=== PATIENT | male | born 1970 | race Hispanic/Latino ===

== ENCOUNTER 2018-09-25 19:51 | Inpatient (IN) | payer OTHER ==
[2018-09-25 20:08] VITALS: BMI 28.1
--- NOTE | 2018-09-25 21:10 | ED PDOC ---
Arrival/HPI - General Chief Complaint: Substance Abuse Time Seen by Provider: 09/25/18 19:59 Historian: Patient - History of Present Illness Narrative History of Present Illness (Text): 09/25/18 20:00 48 year old male, whose past medical history includes anxiety, bipolar disorder, substance abuse, presents to the emergency department for evaluation following heroin overdose. Patient state he snorted heroin tonight which he reports it has been awhile since he has done it. Patient began acting strangely according to the family which caused them to call EMS. Patient currently with no other complaints, but reports feeling anxious. Patient has a history of anxiety and bipolar disorder previously on Abilify, but states he has not been taking it. Patient also reports he has been feeling depressed with the holidays arriving. P atient denies any fever, chills, chest pain, shortness of breath, nausea, vomiting, diarrhea, urinary symptoms, back pain, neck pain, headache, dizziness, suicidal/homicidal ideation or any other complaints. Past Medical History - Provider Review Nursing Documentation Reviewed: Yes - Infectious Disease Hx of Infectious Diseases: None - Cardiac Hx Cardiac Disorders: No Hx Angina: No Hx Cardiac Arrhythmia: No Hx Circulatory Problems: No Hx Congestive Heart Failure: No Hx Heart Murmur: No Hx Heart Transplant: No Hx Hypertension: No Hx Internal Defibrillator: No Hx Mitral Valve Prolapse: No Hx Pacemaker: No Hx Peripheral Edema: No Hx Peripheral Vascular Disease: No - Pulmonary Hx Respiratory Disorders: No Hx Asthma: No Hx Bronchitis: No Hx Chronic Obstructive Pulmonary Disease (COPD): Yes Hx Emphysema: No Hx Pneumonia: No Hx Respiratory Aspiration: No Hx Respiratory Tract Infection: No Hx Sleep Apnea: No Hx Tuberculosis: No - Neurological Hx Neurological Disorder: No Hx Alzheimer's Disease: No HX Cerebrovascular Accident: No Hx Dementia: No Hx Dizziness: No Hx Meningitis: No Hx Migraine: No Hx Parkinson's Disease: No Hx Seizures: No Hx Transient Ischemic Attacks (TIA): No - HEENT Hx HEENT Disorder: No Hx Blind: No Hx Cataracts: No Hx Deafness: No Hx Difficulty Chewing: No Hx Epistaxis: No Hx Glaucoma: No Hx Macular Degeneration: No - Renal Hx Renal Disorder: No Hx Dialysis: No Hx Kidney Stones: No Hx Neurogenic Bladder: No Hx Pyelonephritis: No Hx Renal Cancer: No Hx Renal Failure: No - Endocrine/Metabolic Hx Endocrine Disorders: No Hx Adrenal Cancer: No Hx Diabetes Insipidus: No Hx Diabetes Mellitus Type 1: No Hx Diabetes Mellitus Type 2: No Hx Hyperthyroidism: No Hx Hypothyroidism: No Hx Systemic Lupus Erythematosus: No - Hematological/Oncological Hx Blood Disorders: No Hx AIDS: No Hx Anemia: No Hx Cancer: No Hx Chemotherapy: No Hx Cirrhosis: No Hx Hemophilia: No Hx Hepatitis A: No Hx Hepatitis B: No Hx Hepatitis C: Yes Hx Metastasis: No Hx Shingles: No Hx Sickle Cell Disease: No Hx Unexplained Bleeding: No - Integumentary Hx Dermatological Disorder: No Hx Basal Cell Carcinoma: No Hx Eczema: No Hx Melanoma: No Hx Psoriasis: No Hx Squamous Cell Carcinoma: No - Musculoskeletal/Rheumatological Hx Musculoskeletal Disorders: No Hx Arthritis: No Hx Back Pain: No Hx Degenerative Joint Disease: No Hx Falls: No Hx Fractures: No Hx Gout: No Hx Herniated Disk: No Hx Myasthenia Gravis: No Hx Osteoarthritis: No Hx Osteomyelitis: No Hx Osteoporosis: No Hx Rhabdomyolysis: No Hx Spinal Stenosis: No Hx Unsteady Gait: No - Gastrointestinal Hx Gastrointestinal Disorders: No Hx Colostomy: No Hx Crohn's Disease: No Hx Diverticulitis: No Hx Gall Bladder Disease: No Hx Gastroesophageal Reflux: No Hx Gastrointestinal Ulcer: No Hx Ileostomy: No Hx Liver Failure: No Hx Pancreatitis: No HX Swallowing Problems: No - Genitourinary/Gynecological Hx Genitourinary Disorders: No Hx Hematuria: No Hx Incontinence: No Hx Prostate Problems: No Hx Sexually Transmitted Diseases: No Hx Urinary Tract Infection: No - Psychiatric Hx Anxiety: Yes Hx Bipolar Disorder: No Hx Depression: Yes Hx Emotional Abuse: No Hx Hallucinations: No Hx Panic Disorder: No Hx Post Traumatic Stress Disorder: No Hx Psychosis: No Hx Physical Abuse: No Hx Schizophrenia: No Hx Sexual Abuse: No Hx Substance Use: Yes - Surgical History Hx Amputation: No Hx Appendectomy: No Hx Cardiac Catheterization: No Hx Cholecystectomy: No Hx Coronary Stent: No Hx Gastric Bypass Surgery: No Hx Hysterectomy: No Hx Joint Replacement: No Hx Kidney Transplant: No Hx Liver Transplant: No Hx Mastectomy: No Hx Musculoskeletal Surgery: No Hx Open Heart Surgery: No Hx Orthopedic Surgery: No Hx Splenectomy: No Hx Valve Replacement: No - Anesthesia Hx Anesthesia: No - Suicidal Assessment Feels Threatened In Home Enviroment: No Family/Social History - Physician Review Nursing Documentation Reviewed: Yes Family/Social History: No Known Family HX Smoking Status: Current Some Days Smoker Hx Alcohol Use: Yes (states he has not drinked in 2years) Hx Substance Use: Yes Substance used: heroin Allergies/Home Meds Allergies/Adverse Reactions: Allergies No Known Allergies Allergy (Verified 09/25/18 20:10) Home Medications: Home Meds Medication Instructions Recorded Confirmed No Known Home Med 09/25/18 09/25/18 Review of Systems - Physician Review All systems were reviewed & negative as marked: Yes - Review of Systems Constitutional: absent: Fevers, Other (Chills) Respiratory: absent: SOB Cardiovascular: absent: Chest Pain Gastrointestinal: absent: Diarrhea, Nausea, Vomiting Genitourinary Male: absent: Dysuria, Frequency, Hematuria Neurological: absent: Headache, Dizziness Psychiatric: Anxiety, Depression. absent: Suicidal Ideation (homicidal ideation) Physical Exam Vital Signs Reviewed: Yes Vital Signs Temp Pulse Resp BP Pulse Ox 09/25/18 20:08 98.7 F 91 H 18 169/98 H 95 Temperature: Afebrile Blood Pressure: Hypertensive Pulse: Regular Respiratory Rate: Normal Appearance: Positive for: Well-Appearing, Non-Toxic, Comfortable Pain Distress: None Mental Status: Positive for: Alert and Oriented X 3 - Systems Exam Head: Present: Atraumatic, Normocephalic Pupils: Present: PERRL Extroacular Muscles: Present: EOMI Conjunctiva: Present: Normal Mouth: Present: Moist Mucous Membranes Neck: Present: Normal Range of Motion Respiratory/Chest: Present: Clear to Auscultation, Good Air Exchange. No: Respiratory Distress, Accessory Muscle Use Cardiovascular: Present: Regular Rate and Rhythm, Normal S1, S2. No: Murmurs Abdomen: No: Tenderness, Distention, Peritoneal Signs Back: Present: Normal Inspection Upper Extremity: Present: Normal Inspection. No: Cyanosis, Edema Lower Extremity: Present: Normal Inspection. No: Edema Neurological: Present: GCS=15, CN II-XII Intact, Speech Normal Skin: Present: Warm, Dry, Normal Color. No: Rashes Psychiatric: Present: Alert, Oriented x 3, Normal Insight, Normal Concentration, Other (Flat Affect). No: Normal Affect Medical Decision Making ED Course and Treatment: 09/25/18 20:00 Impression: 48 year old male presents for evaluation following heroin overdose. Patient currently feels anxious and depressed. Plan: -- EKG -- Labs -- Chest X-ray -- Reassess and disposition Prior Visits: Notes and results from previous visits were reviewed. Progress Notes: 09/25/18 20:25 EKG shows NSR at 88 BPM with normal EKG. Interpreted by me. 09/25/18 21:38 CXR Impression: As read by me, no acute process. 09/26/18 02:21 Patient was medically cleared and seen by PES worker. Patient is accepted to psychiatric service by Dr. Phillips. - Lab Interpretations I have reviewed the lab results: Yes - RAD Interpretation Radiology Orders: 09/25/18 20:13 CHEST PORTABLE [RAD] Stat Bend Sorter: ED Physician - EKG Interpretation Interpreted by ED Physician: Yes Type: 12 lead EKG - Scribe Statement The provider has reviewed the documentation as recorded by the Jaswant Lyn Provider Scribe Attestation: All medical record entries made by the Maria Antoniaibe were at my direction and personally dictated by me. I have reviewed the chart and agree that the record accurately reflects my personal performance of the history, physical exam, medical decision making, and the department course for this patient. I have also personally directed, reviewed, and agree with the discharge instructions and disposition. Disposition/Present on Arrival - Present on Arrival Any Indicators Present on Arrival: No History of DVT/PE: No History of Uncontrolled Diabetes: No Urinary Catheter: No History of Decub. Ulcer: No History Surgical Site Infection Following: None - Disposition Have Diagnosis and Disposition been Completed?: Yes Diagnosis: Bipolar disorder, Opiate abuse, episodic Disposition: HOSPITALIZED Disposition Time: 02:21 Patient Plan: Admission Patient Problems: Current Active Problems Problem Status Onset Bipolar disorder Acute Opiate abuse, episodic Acute Condition: STABLE Forms: [employer] (Korean)
[2018-09-25 23:37] LABS: HEMOGLOBIN 15.6 g/dL (14.0-18.0); MEAN CELL VOLUME 92.4 fl (80.0-105.0); MEAN CORPUSCULAR HEMOGLOBIN 31.3 pg (25.0-35.0); MEAN CORPUSCULAR HGB CONC 33.9 g/dl (31.0-37.0); MEAN PLATELET VOLUME 11.5 fl (7.0-11.0); RBC 4.98 10^6/uL (3.5-6.1); RED CELL DISTRIBUTION WIDTH 14.1 % (11.5-14.5); WHITE BLOOD COUNT 14.9 10^3/uL (4.5-11.0)
[2018-09-25 23:47] LABS: ALB/GLOB RATIO 1.4 (1.1-1.8); ALBUMIN 4.7 g/dL (3.0-4.8); ALT/SGPT 26 U/L (7-56); AST/SGOT 31 U/L (17-59); BLOOD UREA NITROGEN 16 mg/dL (7-21); CALCIUM 9.1 mg/dL (8.4-10.5); GFR NON-AFRICAN AMERICAN 58
[2018-09-26 01:08] LABS: BARBITURATES, UR NEGATIVE (NEGATIVE); BENZODIAZEPINES, UR NEGATIVE (NEGATIVE); OPIATES, UR POSITIVE (NEGATIVE); PHENCYCLIDINE, UR NEGATIVE (NEGATIVE)
[2018-09-26 04:15] VITALS: O2SAT 97
[2018-09-26 05:27] LABS: URINE BILIRUBIN NEGATIVE (NEGATIVE); URINE BLOOD NEGATIVE (NEGATIVE); URINE GLUCOSE (UA) NEGATIVE (NEGATIVE); URINE LEUKOCYTE ESTERASE NEGATIVE Leu/uL (NEGATIVE); URINE PROTEIN 100 mg/dL (<30 mg/dL); URINE UROBILINOGEN 0.2 E.U./dL (<1 E.U./dL)
[2018-09-26 05:28] LABS: URINE APPEARANCE CLEAR (CLEAR); URINE COLOR YELLOW (YELLOW)
[2018-09-26 05:30] LABS: URINE BACTERIA SMALL /hpf; URINE RBC 0 - 2 /hpf (0-2)
[2018-09-26 05:31] LABS: URINE FINE GRANULAR CAST 0 - 2 /hpf
[2018-09-26] MEDS ORDERED: Alum-Mag Hydrox-Simethicone Susp (30 mL) PO PRN (06:20)
[2018-09-26] MEDS ORDERED: Magnesium Hydroxide Susp 30 ml UD PO PRN (06:20)
[2018-09-26 08:56] LABS: GLUCOSE,FASTING 115 mg/dL (65-110); HDL CHOLESTEROL 58 mg/dL (29-60)
[2018-09-26 09:07] LABS: LDL CHOLESTEROL 136 mg/dL (0-129)
--- NOTE | 2018-09-26 09:34 | RAD ---
Date of service: 09/25/2018 HISTORY: medical clearance COMPARISON: 02/07/2013 FINDINGS: LUNGS: No active pulmonary disease. PLEURA: No significant pleural effusion identified, no pneumothorax apparent. CARDIOVASCULAR: No aortic atherosclerotic calcification present. Normal cardiac size. No pulmonary vascular congestion. OSSEOUS STRUCTURES: No significant abnormalities. VISUALIZED UPPER ABDOMEN: Normal. OTHER FINDINGS: None. IMPRESSION: No active disease.
[2018-09-26] MEDS: Multivitamin With Minerals Tab PO SCH (09:47)
--- NOTE | 2018-09-26 11:38 | PCM.BM ---
<Jose Alfredo Neville - Last Filed: 09/26/18 11:34> Treatment Plan Problems - Problems identified on initial assessmt INEFFECTIVE COPING Date Initiated: 09/26/18 Time Initiated: 11:35 Assessment reference: HP, NA Status: Active KNOWLEDGE DEFICIIT RE DRUG ABUSE Date Initiated: 09/26/18 Time Initiated: 11:36 Assessment reference: HP, Other Status: Active POOR IMPULSE CONTROL Date Initiated: 09/26/18 Time Initiated: 11:37 Assessment reference: HP, Other Status: Active Treatment assets and liabiliti Patient Assests: adapts well, cooperative, physically healthy, good support system Patient Liabilities: relationship conflicts, substance abuse - Milieu Protocol Maintain good personal hygiene: daily Encourage regular showers, daily Remind patient to perform daily oral care, daily Assist patient to perform ADL's Maintain personal safety: daily Educate patient to report safety concerns to staff, daily Monitor environment for contraband/sharps Medication safety: Monitor for expected outcome, potential side effects: daily, Assess barriers to learning: daily, Assess readiness for medication education: daily Discharge/Continuing Care - Education Needs Education Needs: Patient Medication, Patient Diagnosis/Disease Process, Patient Coping Skills, Patient Anger Management skills, Patient Placement options, Patient Activities of Daily Living, Patient Uses of Medical Equipment, Patient Health Practices/Safety, Patient Personal Hygiene/Grooming - Discharge Discharge Criteria: Tolerates medication w/o severe side effects, Free of S uicidal thoughts, Free of paranoid thoughts, Normal sleep pattern, Ability to care for self <Macey Adams - Last Filed: 09/26/18 13:39> - Diagnosis (1) Bipolar disorder Status: Acute Interventions: 09/26/18 13:39 Psychoeducation Psychopharmacology/adjustment of medications as needed/ monitoring possible side effects Monitor blood level of mood stabilizers Evaluate pt on daily basis Compliance with medications and follow up appointments Suicide and homicide risk assessment and prevention, coping strategies, safety plan Relapse prevention Reduction of symptoms Improve functional status Family involvement As outpatient: cognitive behavioral therapy (2) Opiate abuse, episodic Status: Acute Interventions: 09/26/18 13:39 Monitoring withdrawal symptoms Medical detoxification Pharmacotherapy for alcohol/benzos/opioid dependence Maintaining sobriety Relapse prevention Possible rehabilitation Motivational interviewing 12-step programs: AA meetings <Beti Obando - Last Filed: 09/30/18 13:45> Family Contact Family involvement: Family/SO is involved Family contact: Patient agrees to contact Family contact name: Kindra Benitezloanirene() Family contacted how many times per week?: 2
--- NOTE | 2018-09-26 13:39 | PCM.PSYCH ---
Initial Psychiatric Evaluation - Initial Psychiatric Evaluation Type of Admission: Voluntary Legal Status: Capacity (Patient has capacity to sign consent for treatment) Chief Complaint (in patient's own words): "I am here because I was scratching myself, I need my medications to be adjusted" Patient's Reaction to Hospitalization: Patient was admitted for evaluation and stabilization of depressive symptoms, possible suicidal ideations, please see admission note for more detailed information. History of Present Illness and Precipitating Events: shortly pt is 48 year old male, whose past history includes anxiety, bipolar disorder, substance abuse (heroin), no previous psychiatric admissions, history of detoxes and questionable rehabs, presents to the emergency department for evaluation following heroin overdose. Patient was admitted to the psychiatric inpatient unit for evaluation and stabilization of depressive symptoms, as per emergency room report family was concerned about patient was acting strangely, pt requires observation and possible medication adjustment. Patient was seen and examined today at the morning time at the treatment team meeting, patient presented to have poor personal hygiene, has multiple tattoos on his upper extremities, patient reported that he does not feel well, patient complaining of the headache, this engineering writer gave stat dose of Motrin. Patient was able to hold and interview for short period of time. ADLs are good. Patient reported that she relapsed for feeling for the past couple of weeks after 5 months of sobriety, patient reported that she was self-medicating with heroin/snorting "I was spending only $10 a day", patient reported that she was feeling depressed, hopeless, helpless, worthless, guilty, that is why he relapsed on heroin. As a result patient become more depressed, was not able to sleep, was feeling constantly anxious, patient reported that it affects his work, relationship with his family, patient was not able to function. Patient reported prior to come to the hospital he was trying to scratch himself that is why his family was very concerned and they thought "that that i was suicidal but I was not." As per emergency room report patient was scratching his legs until it began to bleed, patient acting this way because of "severe anxiety." Patient denied visual or auditory tactile hallucinations, denies paranoid ideations, patient does not appear to be psychotic. Patient denies history of being abused. Patient denied any other drug use, smokes about 2 cigarettes a day, does not want to have nicotine patch, counseling provided. Patient reported that he was seen by psychiatrist somewhere in [place] at [facility] but patient does not remember the name of psychiatrist. Patient reported that he was on psychotropic medications but "it was not working for me". Patient reported that his psychiatrist diagnosed him with "bipolar disorder and severe anxiety". As per report patient was on Abilify, Wellbutrin, and Seroquel, patient does not want to continue those medications because "it was not helping me". Patient indicated that he was in [facility] facility [facility] in [facility] about 5 months ago. Past psychiatric history: Patient denied history of being admitted to the psychiatric inpatient unit, patient denies history of suicidal attempts, was contracted for safety during the interview. Medical history: Patient reported being healthy, but during the interview patient complaining of withdrawal symptoms, PRN orders given, patient was educated to ask for help if she would have severe withdrawal symptoms. Family history: Patient denies any family history of mental illness. 09/25/18 23:00 09/25/18 23:00 Lab Results 09/26/18 08:30: TSH 3rd Generation 2.28 09/26/18 08:30: Fasting Glucose 115 H, Triglycerides 64, Cholesterol 228 H, LDL Cholesterol Direct 136 H, HDL Cholesterol 58 09/25/18 23:13: Urine Color Yellow, Urine Appearance Clear, Urine pH 6.0, Ur Specific Woodson >= 1.030, Urine Protein 100 H, Urine Glucose (UA) Negative, Urine Ketones Negative, Urine Blood Negative, Urine Nitrate Negative, Urine Bilirubin Negative, Urine Urobilinogen 0.2, Ur Leukocyte Esterase Negative, U rine RBC 0 - 2, Urine WBC 1 - 3, Ur Epithelial Cells 3 - 4, Urine Bacteria Small, Hyaline Casts 1-3, Fine Granular Casts 0 - 2, Urine Other Mucus 09/25/18 23:13: Urine Opiates Screen Positive H, Urine Methadone Screen Negative, Ur Barbiturates Screen Negative, Ur Phencyclidine Scrn Negative, Ur Amphetamines Screen Negative, U Benzodiazepines Scrn Negative, U Oth Cocaine Me tabols Negative, U Cannabinoids Screen Positive H 09/25/18 23:00: Alcohol, Quantitative < 10 09/25/18 23:00: WBC 14.9 H, RBC 4.98, Hgb 15.6, Hct 46.0, MCV 92.4, MCH 31.3, MCHC 33.9, RDW 14.1, Plt Count 205, MPV 11.5 H 09/25/18 23:00: Sodium 138, Potassium 4.2, Chloride 105, Carbon Dioxide 24, Anion Gap 13, BUN 16, Creatinine 1.3, Est GFR ( Amer) > 60, Est GFR (Non- Af Amer) 58, Random Glucose 109, Calcium 9.1, Total Bilirubin 0.9, AST 31, ALT 26, Alkaline Phosphatase 86, Total Protein 8.1, Albumin 4.7, Globulin 3.4, Albumin/Globulin Ratio 1.4 Vital Signs Temp Pulse Resp BP Pulse Ox 09/26/18 07:09 98.6 F 66 18 115/82 09/26/18 05:10 98.7 F 65 18 128/60 97 09/26/18 04:14 98 F 62 16 123/76 97 09/26/18 01:48 98.2 F 80 16 145/82 95 09/25/18 20:08 98.7 F 91 H 18 169/98 H 95 The patient failed the outpatient lower level of care: Yes Current Medications: Active Medications Generic Name Dose Route Start Last Admin Trade Name Freq PRN Reason Stop Dose Admin Acetaminophen 650 mg 09/26/18 06:20 Tylenol 325mg Tab PO Q6H PRN Fever >100.4 F Acetaminophen 650 mg 09/26/18 06:20 Tylenol 650 Mg Supp RC Q6H PRN Pain, Mild (1-3) Al Hydrox/Mg Hydrox/Simethicone 30 ml 09/26/18 06:20 Maalox Plus 30 Ml PO DAILY PRN Upset Stomach Clonidine HCl 0.1 mg 09/26/18 06:31 Catapres PO Q12 PRN opiod withdrawl Fluoxetine HCl 10 mg 09/27/18 08:00 Prozac PO DAILY DAWIT Ibuprofen 600 mg 09/26/18 09:00 Motrin Tab PO Q6H PRN Fever >100.4 F Lorazepam 1 mg 09/26/18 10:00 09/26/18 09:49 Ativan PO 1 mg AMHS DAWIT Administration Protocol Magnesium Hydroxide 30 ml 09/26/18 06:20 Milk Of Magnesia PO DAILY PRN Constipation Multivitamins/Minerals 1 tab 09/26/18 09:00 09/26/18 09:47 Therapeutic-M Tab PO 1 tab DAILY DAWIT Administration Ondansetron HCl 4 mg 09/26/18 09:00 Zofran Odt PO Q8H PRN Nausea/Vomiting Risperidone 0.5 mg 09/26/18 09:15 09/26/18 09:48 Risperdal Tab PO 0.5 mg DAILY DAWIT Administration Protocol Tramadol HCl 50 mg 09/26/18 08:59 Ultram PO TID PRN SEVERE PAIN Present on Admission - Present on Admission Any Indicators Present on Admission: No Review of Systems - Review of Systems Systems not reviewed;Unavailable: Acuity of Condition - Constitutional Constitutional: As Per HPI - EENT Eyes: As Per HPI Ears: As Per HPI Nose/Mouth/Throat: As Per HPI - Cardiovascular Cardiovascular: As Per HPI - Respiratory Respiratory: As Per HPI - Gastrointestinal Gastrointestinal: As Per HPI - Genitourinary Genitourinary: As Per HPI - Reproductive: Male Reproductive:Male: As Per HPI - Musculoskeletal Musculoskeletal: As Per HPI - Integumentary Integumentary: As Per HPI - Neurological Neurological: As Per HPI - Endocrine Endocrine: As Per HPI - Hematologic/Lymphatic Hematologic: As Per HPI Past Patient History - Past Psychiatric History Previous Treatment History: None Prior Professional Help: See HPI Prior Psychiatric Treatment: See HPI At what hospital: See HPI Duration: See HPI Nature of Treatment: See HPI Explanation of prior treatment: See HPI - PSYCHIATRIC Hx Anxiety: Yes Hx Bipolar Disorder: No Hx Depression: Yes Hx Emotional Abuse: No Hx Hallucinations: No Hx Panic Symptoms: No Hx Post Traumatic Stress Disorder: No Hx Psychosis: No Hx Physical Abuse: No Hx Schizophrenia: No Hx Sexual Abuse: No Hx Substance Use: Yes - Infectious Disease Hx of Infectious Diseases: None - CARDIAC Hx Cardiac Disorders: No Hx Hypertension: No - PULMONARY Hx Tuberculosis: No - NEUROLOGICAL HX Cerebrovascular Accident: No Hx Seizures: No - HEENT Hx HEENT Problems: No Hx Blind: No Hx Cataracts: No Hx Deafness: No Hx Difficulty Chewing: No Hx Epistaxis: No Hx Glaucoma: No Hx Macular Degeneration: No - RENAL Hx Chronic Kidney Disease: No Hx Dialysis: No Hx Kidney Stones: No Hx Neurogenic Bladder: No Hx Pyelonephritis: No Hx Renal (Kidney) Cancer: No Hx Renal Failure: No - ENDOCRINE/METABOLIC Hx Endocrine Disorders: No Hx Adrenal Cancer: No Hx Diabetes Insipidus: No Hx Diabetes Mellitus Type 1: No Hx Diabetes Mellitus Type 2: No Hx Hyperthyroidism: No Hx Hypothyroidism: No Hx Systemic Lupus Erythematosus: No - HEMATOLOGICAL/ONCOLOGICAL Hx Cancer: No Hx Human Immunodeficiency Virus (HIV): No - INTEGUMENTARY Hx Dermatological Problems: No Hx Basil Cell: No Hx Eczema: No Hx Melanoma: No Hx Psoriasis: No Hx Squamous Cell: No - MUSCULOSKELETAL/RHEUMATOLOGICAL Hx Musculoskeletal Disorders: No Hx Arthritis: No Hx Back Pain: No Hx Degenerative Joint Disease: No Hx Falls: No Hx Fractures: No Hx Gout: No Hx Herniated Disk: No Hx Myasthenia Gravis: No Hx Osteoarthritis: No Hx Osteomyelitis: No Hx Osteoporosis: No Hx Rhabdomyolysis: No Hx Spinal Stenosis: No Hx Unsteady Gait: No - GASTROINTESTINAL Hx Gastrointestinal Disorders: No Hx Colostomy: No Hx Crohn's Disease: No Hx Diverticulitis: No Hx Gall Bladder Disease: No Hx Gastroesophageal Reflux: No Hx Ileostomy: No Hx Liver Failure: No Hx Pancreatitis: No HX Swallowing Problems: No - GENITOURINARY/GYNECOLOGICAL Hx Sexually Transmitted Disorders: No - SURGICAL HISTORY Hx Amputation: No Hx Appendectomy: No Hx Cardiac Catheterization: No Hx Cholecystectomy: No Hx Coronary Stent: No Hx Gastric Bypass Surgery: No Hx Hysterectomy: No Hx Joint Replacement: No Hx Kidney Transplant: No Hx Liver Transplant: No Hx Mastectomy: No Hx Musculoskeletal Surgery: No Hx Open Heart Surgery: No Hx Orthopedic Surgery: No Hx Splenectomy: No Hx Valve Replacement: No - ANESTHESIA Hx Anesthesia: No Meds Allergies/Adverse Reactions: Allergies Allergy/AdvReac Type Severity Reaction Status Date / Time No Known Allergies Allergy Verified 09/26/18 06:17 Mental Status Examination - Personal Presentation Personal Presentation: Looks stated age - Affect Affect: Flat - Motor Activity Motor Activity: Calm - Reliability in Providing Information Reliability in Providing Information: Fair - Speech Speech: Organized - Mood Mood: Depressed, Anxious - Formal Thought Process Formal Thought Process: No Impairment - Obsessions/Compulsions Obsessions: None Compulsions: None - Cognitive Functions Orientation: Person, Place, Situation, Time Sensorium: Alert Attention/Concentration: Easily distracted Abstract Thinking: [place] Estimate of Intelligence: Average Judgement: Intact, as evidence by: Insight regarding need for hospitalization - Risk Risk: Withdrawal, Self-mutilation, Diminished functioning - Strength & Assets Inventory Strength & Assets Inventory: Intelligence, Family support, Employment status, Employment history, Cooperative - Limitations Limitations: Other (Drug abuse and impulsivity) Psychiatric Physical Exam - Physical Exam Reviewed and confirmed: Emergency Department Physical Exam Results - Vital Signs Recent Vital Signs: Last Vital Signs Temp 98.6 F 09/26/18 07:09 Pulse 66 09/26/18 07:09 Resp 18 09/26/18 07:09 BP 115/82 09/26/18 07:09 Pulse Ox 97 09/26/18 05:10 - Labs Result Diagrams: 09/25/18 23:00 09/25/18 23:00 Labs: Laboratory Results - last 24 hr 09/25/18 09/25/18 09/25/18 23:00 23:00 23:00 WBC 14.9 H RBC 4.98 Hgb 15.6 Hct 46.0 MCV 92.4 MCH 31.3 MCHC 33.9 RDW 14.1 Plt Count 205 MPV 11.5 H Sodium 138 Potassium 4.2 Chloride 105 Carbon Dioxide 24 Anion Gap 13 BUN 16 Creatinine 1.3 Est GFR ( Amer) > 60 Est GFR (Non-Af Amer) 58 Random Glucose 109 Fasting Glucose Calcium 9.1 Total Bilirubin 0.9 AST 31 ALT 26 Alkaline Phosphatase 86 Total Protein 8.1 Albumin 4.7 Globulin 3.4 Albumin/Globulin Ratio 1.4 Triglycerides Cholesterol LDL Cholesterol Direct HDL Cholesterol TSH 3rd Generation Urine Color Urine Appearance Urine pH Ur Specific Woodson Urine Protein Urine Glucose (UA) Urine Ketones Urine Blood Urine Nitrate Urine Bilirubin Urine Urobilinogen Ur Leukocyte Esterase Urine RBC Urine WBC Ur Epithelial Cells Urine Bacteria Hyaline Casts Fine Granular Casts Urine Other Urine Opiates Screen Urine Methadone Screen Ur Barbiturates Screen Ur Phencyclidine Scrn Ur Amphetamines Screen U Benzodiazepines Scrn U Oth Cocaine Metabols U Cannabinoids Screen Alcohol, Quantitative < 10 09/25/18 09/25/18 09/26/18 23:13 23:13 08:30 WBC RBC Hgb Hct MCV MCH MCHC RDW Plt Count MPV Sodium Potassium Chloride Carbon Dioxide Anion Gap BUN Creatinine Est GFR ( Amer) Est GFR (Non-Af Amer) Random Glucose Fasting Glucose 115 H Calcium Total Bilirubin AST ALT Alkaline Phosphatase Total Protein Albumin Globulin Albumin/Globulin Ratio Triglycerides 64 Cholesterol 228 H LDL Cholesterol Direct 136 H HDL Cholesterol 58 TSH 3rd Generation Urine Color Yellow Urine Appearance Clear Urine pH 6.0 Ur Specific Woodson >= 1.030 Urine Protein 100 H Urine Glucose (UA) Negative Urine Ketones Negative Urine Blood Negative Urine Nitrate Negative Urine Bilirubin Negative Urine Urobilinogen 0.2 Ur Leukocyte Esterase Negative Urine RBC 0 - 2 Urine WBC 1 - 3 Ur Epithelial Cells 3 - 4 Urine Bacteria Small Hyaline Casts 1-3 Fine Granular Casts 0 - 2 Urine Other Mucus Urine Opiates Screen Positive H Urine Methadone Screen Negative Ur Barbiturates Screen Negative Ur Phencyclidine Scrn Negative Ur Amphetamines Screen Negative U Benzodiazepines Scrn Negative U Oth Cocaine Metabols Negative U Cannabinoids Screen Positive H Alcohol, Quantitative 09/26/18 08:30 WBC RBC Hgb Hct MCV MCH MCHC RDW Plt Count MPV Sodium Potassium Chloride Carbon Dioxide Anion Gap BUN Creatinine Est GFR ( Amer) Est GFR (Non-Af Amer) Random Glucose Fasting Glucose Calcium Total Bilirubin AST ALT Alkaline Phosphatase Total Protein Albumin Globulin Albumin/Globulin Ratio Triglycerides Cholesterol LDL Cholesterol Direct HDL Cholesterol TSH 3rd Generation 2.28 Urine Color Urine Appearance Urine pH Ur Specific Woodson Urine Protein Urine Glucose (UA) Urine Ketones Urine Blood Urine Nitrate Urine Bilirubin Urine Urobilinogen Ur Leukocyte Esterase Urine RBC Urine WBC Ur Epithelial Cells Urine Bacteria Hyaline Casts Fine Granular Casts Urine Other Urine Opiates Screen Urine Methadone Screen Ur Barbiturates Screen Ur Phencyclidine Scrn Ur Amphetamines Screen U Benzodiazepines Scrn U Oth Cocaine Metabols U Cannabinoids Screen Alcohol, Quantitative - EKG Data EKG Interpreted by: Myself EKG shows normal: Sinus rhythm DSM Plan - DSM 5 DSM 5 Diagnosis: As per history of bipolar disorder Opioid use disorder rule out opioid withdrawal symptoms - Recommended/Plan of Treatment Treatment Recommendations and Plan of Treatment: Milieu/structure/supportive therapy Medical consult will be called SW consultation for discharge plan and social issues Med management Risperdal will be started 0.5 mg twice a day for mood stabilization and irritability Prozac 10 mg in the morning for him for depression and anxiety Ativan 1 mg twice a day for anxiety As needed medications for possible opioid withdrawals Family involvement Follow up on labs Will monitor closely Pt was educated about risk/benefits and alternatives of medications, coping strategies (safety plan, suicide prevention), relapse prevention, importance of follow up with psychiatrist and therapist, stay away from drugs/alcohol/smoking Projected ELOS: 7 days Prognosis: Guarded Discharge Plan and Discharge Criteria: Pt will be not depressed or manic, will be more hopeful, will be not psychotic or anxious, will be not having thoughts of harming self or others, will be tolerating medications well, will not have major side effects, will be able to function, will not pose threat to self or others. - Tobacco Cessation Tobacco Use Status for the last 30 days: Light User(<=4 cigs daily, cigar/pipes not daily,or smokeless tobacco) Tobacco Use Treatment Practical Counseling Provided: Yes Tobacco Use Treatment FDA-Approved Cessation Medication Provided: No Reason for not providing: Patient refused tobacco cessation medication - Alcohol or Substance Abuse Does the patient have an Alcohol or Substance Abuse Disorder: Yes Initial Psych Certification - Initial Certification I certify that the inpatient psychiatric facility admission was medically necessary for either: Treatment which could reasonbly be expected to improve pt's condition, Diagnostic study I estimate of hospitalization is necessary for proper treatment of the patient: 7 Unit of Time: Days My plans for post-hospital care for this patient are: Dual diagnosis program, AA meetings and NA meetings
--- NOTE | 2018-09-26 18:18 | CARD ---
APPROVED REPORT Date of service: 09/25/2018 EKG Measurement Heart [id number] <Conclusion> Normal sinus rhythm Normal ECG
[2018-09-27] MEDS: Multivitamin With Minerals Tab PO SCH (08:48)
--- NOTE | 2018-09-27 12:32 | CP.PCM.CON ---
<Alecia Camargo - Last Filed: 09/27/18 12:32> History of Present Illness - History of Present Illness History of Present Illness: Alecia Camargo, Hospital Consult Note This is a 48 year old male with PMH of depression, anxiety, substance abuse including heroin, bipolar, COPD and sciatica presenting to the hospital via EMS after family found patient in heroin overdose and altered. Patient states he has been feeling depressed during the holiday season and was previously sober from drugs for some time prior to admission. Medicine has been consulted for nausea/vomiting as well as leukocytosis. Patient states he is not nauseas and has not had any vomiting episodes over the past week but does admit to one episode of diarrhea daily over the past few days. He denies CP, SOB, fevers, chills, back pain, abdominal pain, constipation, urinary complaints, numbness, tingling, swelling, recent sickness and recent travel. 12 point ROS noted here, otherwise unremarkable. PMD: denies PMH: depression, anxiety, substance abuse including heroin, bipolar, COPD and sciatica Meds: denies any home medications SH: former heavy smoker 1ppd/30 years; currently smokes 4-5 ciggs/day for the last year. Denies drinking. Admits to snorting heroin Sx: denies surgeries FH: breast cancer ALL: NKDA Past Patient History - Infectious Disease Hx of Infectious Diseases: None - Past Social History Smoking Status: Light Smoker < 10 Cigarettes Daily - CARDIAC Hx Cardiac Disorders: No Hx Hypertension: No - PULMONARY Hx Tuberculosis: No - NEUROLOGICAL HX Cerebrovascular Accident: No Hx Seizures: No - HEENT Hx HEENT Problems: No Hx Cataracts: No Hx Deafness: No Hx Difficulty Chewing: No Hx Epistaxis: No Hx Glaucoma: No Hx Macular Degeneration: No - RENAL Hx Chronic Kidney Disease: No Hx Dialysis: No Hx Kidney Stones: No Hx Neurogenic Bladder: No Hx Pyelonephritis: No Hx Renal (Kidney) Cancer: No Hx Renal Failure: No - ENDOCRINE/METABOLIC Hx Endocrine Disorders: No Hx Adrenal Cancer: No Hx Diabetes Insipidus: No Hx Diabetes Mellitus Type 1: No Hx Diabetes Mellitus Type 2: No Hx Hyperthyroidism: No Hx Hypothyroidism: No Hx Systemic Lupus Erythematosus: No - HEMATOLOGICAL/ONCOLOGICAL Hx Cancer: No Hx Human Immunodeficiency Virus (HIV): No - INTEGUMENTARY Hx Dermatological Problems: No Hx Basil Cell: No Hx Eczema: No Hx Melanoma: No Hx Psoriasis: No Hx Squamous Cell: No - MUSCULOSKELETAL/RHEUMATOLOGICAL Hx Musculoskeletal Disorders: No Hx Arthritis: No Hx Back Pain: No Hx Degenerative Joint Disease: No Hx Falls: No Hx Fractures: No Hx Gout: No Hx Herniated Disk: No Hx Myasthenia Gravis: No Hx Osteoarthritis: No Hx Osteomyelitis: No Hx Osteoporosis: No Hx Rhabdomyolysis: No Hx Spinal Stenosis: No Hx Unsteady Gait: No - GASTROINTESTINAL Hx Gastrointestinal Disorders: No Hx Colostomy: No Hx Crohn's Disease: No Hx Diverticulitis: No Hx Gall Bladder Disease: No Hx Gastroesophageal Reflux: No Hx Ileostomy: No Hx Liver Failure: No Hx Pancreatitis: No HX Swallowing Problems: No - GENITOURINARY/GYNECOLOGICAL Hx Sexually Transmitted Disorders: No - PSYCHIATRIC Hx Anxiety: Yes Hx Depression: Yes Hx Substance Use: Yes - SURGICAL HISTORY Hx Amputation: No Hx Appendectomy: No Hx Cardiac Catheterization: No Hx Cholecystectomy: No Hx Coronary Stent: No Hx Gastric Bypass Surgery: No Hx Hysterectomy: No Hx Joint Replacement: No Hx Kidney Transplant: No Hx Liver Transplant: No Hx Mastectomy: No Hx Musculoskeletal Surgery: No Hx Open Heart Surgery: No Hx Orthopedic Surgery: No Hx Splenectomy: No Hx Valve Replacement: No - ANESTHESIA Hx Anesthesia: No Meds Allergies/Adverse Reactions: Allergies Allergy/AdvReac Type Severity Reaction Status Date / Time No Known Allergies Allergy Verified 09/26/18 06:17 - Medications Medications: Current Medications Acetaminophen (Tylenol 325mg Tab) 650 mg PO Q6H PRN PRN Reason: Fever >100.4 F Acetaminophen (Tylenol 650 Mg Supp) 650 mg RC Q6H PRN PRN Reason: Pain, Mild (1-3) Al Hydrox/Mg Hydrox/Simethicone (Maalox Plus 30 Ml) 30 ml PO DAILY PRN PRN Reason: Upset Stomach Clonidine HCl (Catapres) 0.1 mg PO Q12 PRN PRN Reason: opiod withdrawl Fluoxetine HCl (Prozac) 20 mg PO DAILY [facility] Ibuprofen (Motrin Tab) 600 mg PO Q6H PRN PRN Reason: Fever >100.4 F Lorazepam (Ativan) 1 mg PO AMHS [facility]; Protocol Last Admin: 09/27/18 09:15 Dose: 1 mg Magnesium Hydroxide (Milk Of Magnesia) 30 ml PO DAILY PRN PRN Reason: Constipation Multivitamins/Minerals (Therapeutic-M Tab) 1 tab PO DAILY [facility] Last Admin: 09/27/18 08:48 Dose: 1 tab Ondansetron HCl (Zofran Odt) 4 mg PO Q8H PRN PRN Reason: Nausea/Vomiting Risperidone (Risperdal Tab) 1 mg PO AMHS [facility]; Protocol Tramadol HCl (Ultram) 50 mg PO TID PRN PRN Reason: SEVERE PAIN Physical Exam - Constitutional Appears: No Acute Distress - Head Exam Head Exam: ATRAUMATIC, NORMAL INSPECTION - Eye Exam Eye Exam: EOMI Pupil Exam: PERRL - ENT Exam ENT Exam: Mucous Membranes Moist - Neck Exam Neck exam: Positive for: Normal Inspection - Respiratory Exam Respiratory Exam: Clear to Auscultation Bilateral, NORMAL BREATHING PATTERN. absent: Accessory Muscle Use, Wheezes, Respiratory Distress - Cardiovascular Exam Cardiovascular Exam: REGULAR RHYTHM, +S1, +S2 - GI/Abdominal Exam GI & Abdominal Exam: Normal Bowel Sounds, Soft. absent: Distended, Firm, Guarding, Tenderness - Extremities Exam Extremities exam: Positive for: normal inspection, pedal pulses present. Negative for: calf tenderness, tenderness - Neurological Exam Neurological exam: Alert, CN II-XII Intact, Oriented x3 - Skin Skin Exam: Normal Color, Warm Results - Vital Signs Recent Vital Signs: Last Vital Signs Temp 98.7 F 09/27/18 07:25 Pulse 68 09/27/18 07:25 Resp 20 09/27/18 07:25 BP 110/65 09/27/18 07:25 Pulse Ox 97 09/26/18 05:10 - Labs Result Diagrams: 09/25/18 23:00 09/25/18 23:00 Labs: Laboratory Results - last 24 hr 09/26/18 08:30 RPR Nonreactive Assessment & Plan - Assessment and Plan (Free Text) Assessment: This is a 48 year old male with PMH of depression, anxiety, substance abuse including heroin, bipolar, COPD and sciatica presenting to the hospital via EMS after family found patient in heroin overdose and altered. Plan: Mild leukocytosis -afebrile -procalc pending -CXR, UA pending -CBC AM pending Nausea/vomiting - resolved -patient denies any symptoms over the last week -some days had one episode of non bloody diarrhea - not concerning at this time -monitor Hx of COPD -albuterol prn -pulmicort BID abida Hx of depression, anxiety, bipolar -continue meds as per psych Medicine will sign off of the case, thank you for the consultation. Please re- consult for any new concerns. Patient seen and examined with attending, Dr. Gray <Leonor Gray - Last Filed: 09/27/18 18:40> Meds - Medications Medications: Current Medications Acetaminophen (Tylenol 325mg Tab) 650 mg PO Q6H PRN PRN Reason: Fever >100.4 F Acetaminophen (Tylenol 650 Mg Supp) 650 mg RC Q6H PRN PRN Reason: Pain, Mild (1-3) Al Hydrox/Mg Hydrox/Simethicone (Maalox Plus 30 Ml) 30 ml PO DAILY PRN PRN Reason: Upset Stomach Albuterol Sulfate (Albuterol 0.083% Inhal [place] (2.5 Mg/3 Ml) Ud) 2.5 mg INH Q2H PRN PRN Reason: Shortness of Breath Arformoterol Tartrate (Brovana) 15 mcg IH [id number] ABIDA Budesonide (Pulmicort Respules) 0.5 mg IH [id number] ABIDA Clonidine HCl (Catapres) 0.1 mg PO Q12 PRN PRN Reason: opiod withdrawl Fluoxetine HCl (Prozac) 20 mg PO DAILY [facility] Ibuprofen (Motrin Tab) 600 mg PO Q6H PRN PRN Reason: Fever >100.4 F Lorazepam (Ativan) 1 mg PO [facility]; Protocol Last Admin: 09/27/18 09:15 Dose: 1 mg Magnesium Hydroxide (Milk Of Magnesia) 30 ml PO DAILY PRN PRN Reason: Constipation Multivitamins/Minerals (Therapeutic-M Tab) 1 tab PO DAILY [facility] Last Admin: 09/27/18 08:48 Dose: 1 tab Ondansetron HCl (Zofran Odt) 4 mg PO Q8H PRN PRN Reason: Nausea/Vomiting Risperidone (Risperdal Tab) 1 mg PO AMHS [facility]; Protocol Tramadol HCl (Ultram) 50 mg PO TID PRN PRN Reason: SEVERE PAIN Results - Vital Signs Recent Vital Signs: Last Vital Signs Temp 98.7 F 09/27/18 07:25 Pulse 66 09/27/18 16:00 Resp 20 09/27/18 07:25 BP 109/66 12/28/18 16:00 Pulse Ox 97 09/26/18 05:10 - Labs Result Diagrams: 09/25/18 23:00 09/25/18 23:00 Attending/Attestation - Attestation I have personally seen and examined this patient.: Yes I have fully participated in the care of the patient.: Yes I have reviewed all pertinent clinical information: Yes Notes (Text): 09/27/18 18:38 Medical record note made by the resident after discussion with my direction and input after the patient was personally seen and examined by me. I have reviewed the chart and agree that the record accurately reflects by personal performance of the history, physical exam, data review, and medical decision-making, in the course for the patient. I have also personally directed the plan of care. Patient is asymptomatic, lung sound are clear.He is afebrile. Leukocytosis is reactive, does not need any further work up as patient is asymptomatic and physical examination is benign. Can repeat CBC in few days. There is no active medical issue at this time.We will sign off. Please call us back if any question.
[2018-09-27] MEDS ORDERED: Albuterol 0.083% Inhal Sol (2.5 mg/3 mL) UD INH PRN (12:44)
--- NOTE | 2018-09-27 14:48 | PCM.PYCHPN ---
Psychiatric Progress Note - Psychiatric Progress Note Patient seen today, length of contact: 30 minutes Patient Chief Complaint: "I feel little better from physical standpoint, I am still feel the same depressed, hopeless." Problems Identified/Issues Discussed: Suicide/ homicide prevention, past psychiatric h/o, current psychiatric symptoms, medical problems, risk/benefits and alternatives of medications, medications compliance, coping strategies, substance abuse h/o, relapse prevention, importance of follow up with psychiatrist and therapist, discharge plan. Medical Problems: Patient is relatively healthy, medical consult was called because possible opioid withdrawals and patient was complaining of nausea and vomiting. Diagnostic Results: 09/25/18 23:00 09/25/18 23:00 Lab Results 09/26/18 08:30: RPR Nonreactive 09/26/18 08:30: TSH 3rd Generation 2.28 09/26/18 08:30: Fasting Glucose 115 H, Triglycerides 64, Cholesterol 228 H, LDL Cholesterol Direct 136 H, HDL Cholesterol 58 09/25/18 23:13: Urine Color Yellow, Urine Appearance Clear, Urine pH 6.0, Ur Specific [place] >= 1.030, Urine Protein 100 H, Urine Glucose (UA) Negative, Urine Ketones Negative, Urine Blood Negative, Urine Nitrate Negative, Urine Bilirubin Negative, Urine Urobilinogen 0.2, Ur Leukocyte Esterase Negative, Urine RBC 0 - 2, Urine WBC 1 - 3, Ur Epithelial Cells 3 - 4, Urine Bacteria Small, Hyaline Casts 1-3, Fine Granular Casts 0 - 2, Urine Other Mucus 09/25/18 23:13: Urine Opiates Screen Positive H, Urine Methadone Screen Negative, Ur Barbiturates Screen Negative, Ur Phencyclidine Scrn Negative, Ur Amphetamines Screen Negative, U Benzodiazepines Scrn Negative, U Oth Cocaine Metabols Negative, U Cannabinoids Screen Positive H 09/25/18 23:00: Alcohol, Quantitative < 10 09/25/18 23:00: WBC 14.9 H, RBC 4.98, Hgb 15.6, Hct 46.0, MCV 92.4, MCH 31.3, MCHC 33.9, RDW 14.1, Plt Count 205, MPV 11.5 H 09/25/18 23:00: Sodium 138, Potassium 4.2, Chloride 105, Carbon Dioxide 24, Anion Gap 13, BUN 16, Creatinine 1.3, Est GFR ( Amer) > 60, Est GFR (Non- Af Amer) 58, Random Glucose 109, Calcium 9.1, Total Bilirubin 0.9, AST 31, ALT 26, Alkaline Phosphatase 86, Total Protein 8.1, Albumin 4.7, Globulin 3.4, Albumin/Globulin Ratio 1.4 Vital Signs Temp Pulse Pulse Resp BP Pulse Ox 09/27/18 07:25 98.7 F 68 20 110/65 09/26/18 16:00 74 110/64 09/26/18 14:39 66 18 09/26/18 07:09 98.6 F 66 18 115/82 09/26/18 05:10 98.7 F 65 18 128/60 97 09/26/18 04:14 98 F 62 16 123/76 97 09/26/18 01:48 98.2 F 80 16 145/82 95 09/25/18 20:08 98.7 F 91 H 18 169/98 H 95 DSM 5 Symptoms Update: shortly pt is 48 year old male, whose past history includes anxiety, bipolar disorder, substance abuse (heroin), no previous psychiatric admissions, history of detoxes and questionable rehabs, presents to the emergency department for evaluation following heroin overdose. Patient was admitted to the psychiatric inpatient unit for evaluation and stabilization of depressive symptoms, as per emergency room report family was concerned about patient was acting strangely, pt requires observation and possible medication adjustment. Patient was seen and examined today at the morning time and she is room, later on at the treatment team meeting, patient presented to have poor personal hygiene, has multiple tattoos on his upper extremities, patient is disengaged, mildly irritable. Patient reported from this physical standpoint he feels little better, patient denied any vomiting, patient reported no new complaints, there is mild opioid withdrawal symptoms such as nausea and muscle pain. Patient reported that he still feels depressed, hopeless, helpless, patient so far likes Risperdal, denied any side effects, patient reported that he had a good night sleep. Collateral's were obtained from patient , please see oncology social worker notes for more detailed information. As per staff patient is self isolating, mildly irritable, but no agitation or aggression. So far patient tolerates medications well, no side effects observed or reported, aims 0, no EPS. Impression: As per history of bipolar disorder Opioid use disorder Rule out substance-induced mood disorder Rule out generalized anxiety disorder Rule out substance-induced anxiety disorder Medication Change: Yes (Risperdal and Prozac increased) Medical Record Reviewed: Yes Consults ordered or reviewed: Medical consult appreciated please see notes for more detailed information. Mental Status Examination - Cognitive Function Orientation: Person, Place, Situation, Time Memory: Intact Attention: Poor Concentration: Poor Association: WNL Fund of Knowledge: WNL - Mood Mood: Depressed, Anxious - Affect Affect: Flat - Speech Speech: Appropriate - Formal Thought Process Formal Thought Process: No Impairment - Suicidal Ideation Suicidal Ideation: No - Homicidal Ideation Homicidal Ideation: No Goal/Treatment Plan - Goal/Treatment Plan Need for Continued Stay: Remain at risks for inpatient hospitalization, Severe depression anxiety, Discharge may exacerbated symptoms, Severe functional impairment Progress Toward Problem(s) and Goals/Treatment Plan: Milieu/structure/supportive therapy Medical consult will be called SW consultation for discharge plan and social issues Med management Risperdal increased to 1 mg twice a day for mood stabilization and irritability Prozac 20 mg in the morning for him for depression and anxiety Ativan 1 mg twice a day for anxiety As needed medications for possible opioid withdrawals Family involvement, collateral from appreciated Follow up on labs Will monitor closely Pt was educated about risk/benefits and alternatives of medications, coping strategies (safety plan, suicide prevention), relapse prevention, importance of follow up with psychiatrist and therapist, stay away from drugs/alcohol/smoking Estimated Date of D/C: 09/30/18 - Smoking Cessation Smoking Cessation Initiated: No Reason for not providing: Patient refused
[2018-09-27] MEDS: Arformoterol 15 mcg/2 ml Inh Sol IH SCH (21:29)
[2018-09-27] MEDS: Budesonide 0.5 mg/2 ml Inhal Susp UD IH SCH (21:29)
[2018-09-28 08:16] LABS: HEMOGLOBIN 15.4 g/dL (14.0-18.0); MEAN CELL VOLUME 92.3 fl (80.0-105.0); MEAN CORPUSCULAR HEMOGLOBIN 30.6 pg (25.0-35.0); MEAN CORPUSCULAR HGB CONC 33.1 g/dl (31.0-37.0); MEAN PLATELET VOLUME 11.5 fl (7.0-11.0); RBC 5.04 10^6/uL (3.5-6.1); RED CELL DISTRIBUTION WIDTH 14.1 % (11.5-14.5); WHITE BLOOD COUNT 7.4 10^3/uL (4.5-11.0)
[2018-09-28] MEDS: Multivitamin With Minerals Tab PO SCH (08:59)
--- NOTE | 2018-09-28 09:14 | PCM.PYCHPN ---
Psychiatric Progress Note - Psychiatric Progress Note Patient seen today, length of contact: 30 minutes Problems Identified/Issues Discussed: I reviewed assessment and recent notes. Patient is a 48 year old male, whose past history includes anxiety, bipolar disorder, substance abuse (heroin), no previous psychiatric admissions, history of detoxes and questionable rehabs who presented to the emergency department for evaluation following heroin overdose. Patient was admitted to the psychiatric inpatient unit for evaluation and stabilization of depressive symptoms, as per emergency room report family was concerned about patient was acting strangely, pt requires observation and possible medication adjustment. Patient was seen and examined at bedside today. He is oriented x3. His grooming is a little unkempt and patient reports with a neutral affect that he is "feeling fine, everything is fine". Thought process is coherent and patient is not exhibiting any symptoms of perceptual disturbance. Patient denies any new side effects, discomfort or pain except for back pain which he attributes to sleeping on an uncomfortable bed. Patient has been a little more visible but generally still keeps to himself. There were no behavioral issues overnight. Diagnostic Results: As per history of bipolar disorder Opioid use disorder Rule out substance-induced mood disorder Rule out generalized anxiety disorder Rule out substance-induced anxiety disorder Medication Change: No ( ) Medical Record Reviewed: Yes Mental Status Examination - Cognitive Function Orientation: Person, Place, Situation, Time Memory: Intact Attention: Poor Concentration: Poor Association: WNL Fund of Knowledge: WNL - Mood Mood: Depressed, Anxious - Affect Affect: Flat - Speech Speech: Appropriate - Formal Thought Process Formal Thought Process: No Impairment - Suicidal Ideation Suicidal Ideation: No - Homicidal Ideation Homicidal Ideation: No Goal/Treatment Plan - Goal/Treatment Plan Need for Continued Stay: Remain at risks for inpatient hospitalization, Severe depression anxiety, Discharge may exacerbated symptoms, Severe functional impairment Progress Toward Problem(s) and Goals/Treatment Plan: * c/w current tx and plan * Vitals reviewed and noted below: Selected Entries 09/27/18 09/27/18 07:25 16:00 Temperature 98.7 F Pulse Rate 68 66 Respiratory 20 Rate Blood Pressure 110/65 109/66 * New weekend lab results noted below: Laboratory Results - last 24 hr 09/28/18 07:30 WBC 7.4 D RBC 5.04 Hgb 15.4 Hct 46.5 MCV 92.3 MCH 30.6 MCHC 33.1 RDW 14.1 Plt Count 188 MPV 11.5 H Estimated Date of D/C: 09/30/18
[2018-09-28] MEDS: Budesonide 0.5 mg/2 ml Inhal Susp UD IH SCH ×2 (12:04→23:09)
[2018-09-28] MEDS: Arformoterol 15 mcg/2 ml Inh Sol IH SCH ×2 (12:04→23:09)
[2018-09-29] MEDS: Multivitamin With Minerals Tab PO SCH (09:22)
[2018-09-29] MEDS: Budesonide 0.5 mg/2 ml Inhal Susp UD IH SCH ×2 (09:23→22:29)
[2018-09-29] MEDS: Arformoterol 15 mcg/2 ml Inh Sol IH SCH ×2 (09:23→22:29)
--- NOTE | 2018-09-29 10:09 | PCM.PYCHPN ---
Psychiatric Progress Note - Psychiatric Progress Note Patient seen today, length of contact: 30 minutes Problems Identified/Issues Discussed: I reviewed recent notes. Patient is a 48 year old male, whose past history includes anxiety, bipolar disorder, substance abuse (heroin), no previ ous psychiatric admissions, history of detoxes and questionable rehabs who presented to the emergency department for evaluation following heroin overdose. Patient was admitted to the psychiatric inpatient unit for evaluation and stabilization of depressive symptoms, as per emergency room report family was concerned about patient was acting strangely, pt requires observation and possible medication adjustment. Patient was seen and examined at bedside again today. He is oriented x3. His grooming is a little unkempt and patient reports with a neutral affect that he is "feeling fine, everything is fine, so far so good". Thought process is coherent and patient is not exhibiting any symptoms of perceptual disturbance. Patient denies any new side effects, discomfort or pain today. Patient has been a little more visible but generally still keeps to himself. He can be a little labile and irritable. There were no behavioral issues overnight. Diagnostic Results: As per history of bipolar disorder Opioid use disorder Rule out substance-induced mood disorder Rule out generalized anxiety disorder Rule out substance-induced anxiety disorder Medication Change: No ( ) Medical Record Reviewed: Yes Mental Status Examination - Cognitive Function Orientation: Person, Place, Situation, Time Memory: Intact Attention: Poor Concentration: Poor Association: WNL Fund of Knowledge: WNL - Mood Mood: Depressed, Anxious - Affect Affect: Flat - Speech Speech: Appropriate - Formal Thought Process Formal Thought Process: No Impairment - Suicidal Ideation Suicidal Ideation: No - Homicidal Ideation Homicidal Ideation: No Goal/Treatment Plan - Goal/Treatment Plan Need for Continued Stay: Remain at risks for inpatient hospitalization, Severe depression anxiety, Discharge may exacerbated symptoms, Severe functional impairment Progress Toward Problem(s) and Goals/Treatment Plan: * c/w current tx and plan * Vitals reviewed and noted below: Selected Entries 09/28/18 09/28/18 07:00 15:00 Temperature 97.7 F Pulse Rate 72 63 Respiratory 20 Rate Blood Pressure 120/72 115/67 * New weekend lab results noted below: Laboratory Results - last 24 hr 09/28/18 07:30 WBC 7.4 D RBC 5.04 Hgb 15.4 Hct 46.5 MCV 92.3 MCH 30.6 MCHC 33.1 RDW 14.1 Plt Count 188 MPV 11.5 H Estimated Date of D/C: 09/30/18
[2018-09-30 07:18] VITALS: BP 132/73; PULSE 65; RESP 19; TEMP 98.3
--- NOTE | 2018-09-30 08:45 | PCM.PYCHDC ---
Mental Status Examination - Mental Status Examination Orientation: Person, Place, Situation Memory: Intact Mood: Neutral Affect: Broad Speech: Appropriate Attention: WNL Concentration: WNL Association: WNL Fund of Knowledge: WNL Formal Thought Process: No Impairment Description of patient's judgement and insight: Much improved and fair insight and judgment Psychotic Thoughts and Behaviors: Patient denied perceptual disturbance including hallucinations or paranoia. Delusions were not elicited on day of discharge. Suicidal Ideation: No Current Homicidal Ideation?: No Discharge Summary - Discharge Note Reason for Hospitalization: shortly pt is 48 year old male, whose past history includes anxiety, bipolar disorder, substance abuse (heroin), no previous psychiatric admissions, history of detoxes and questionable rehabs, presents to the emergency department for evaluation following heroin overdose. Patient was admitted to the psychiatric inpatient unit for evaluation and stabilization of depressive symptoms, as per emergency room report family was concerned about patient was acting strangely, pt requires observation and possible medication adjustment. Psychiatric History (includes Medical, Family, Personal Hx): See HPI Laboratory Data: Laboratory Tests 09/25/18 09/25/18 09/25/18 23:00 23:00 23:00 WBC 14.9 H RBC 4.98 Hgb 15.6 Hct 46.0 MCV 92.4 MCH 31.3 MCHC 33.9 RDW 14.1 Plt Count 205 MPV 11.5 H Sodium 138 Potassium 4.2 Chloride 105 Carbon Dioxide 24 Anion Gap 13 BUN 16 Creatinine 1.3 Est GFR ( Amer) > 60 Est GFR (Non-Af Amer) 58 Random Glucose 109 Fasting Glucose Calcium 9.1 Total Bilirubin 0.9 AST 31 ALT 26 Alkaline Phosphatase 86 Total Protein 8.1 Albumin 4.7 Globulin 3.4 Albumin/Globulin Ratio 1.4 Triglycerides Cholesterol LDL Cholesterol Direct HDL Cholesterol TSH 3rd Generation Urine Color Urine Appearance Urine pH Ur Specific Speed Urine Protein Urine Glucose (UA) Urine Ketones Urine Blood Urine Nitrate Urine Bilirubin Urine Urobilinogen Ur Leukocyte Esterase Urine RBC Urine WBC Ur Epithelial Cells Urine Bacteria Hyaline Casts Fine Granular Casts Urine Other Urine Opiates Screen Urine Methadone Screen Ur Barbiturates Screen Ur Phencyclidine Scrn Ur Amphetamines Screen U Benzodiazepines Scrn U Oth Cocaine Metabols U Cannabinoids Screen Alcohol, Quantitative < 10 RPR 09/25/18 09/25/18 09/26/18 23:13 23:13 08:30 WBC RBC Hgb Hct MCV MCH MCHC RDW Plt Count MPV Sodium Potassium Chloride Carbon Dioxide Anion Gap BUN Creatinine Est GFR ( Amer) Est GFR (Non-Af Amer) Random Glucose Fasting Glucose 115 H Calcium Total Bilirubin AST ALT Alkaline Phosphatase Total Protein Albumin Globulin Albumin/Globulin Ratio Triglycerides 64 Cholesterol 228 H LDL Cholesterol Direct 136 H HDL Cholesterol 58 TSH 3rd Generation Urine Color Yellow Urine Appearance Clear Urine pH 6.0 Ur Specific Speed >= 1.030 Urine Protein 100 H Urine Glucose (UA) Negative Urine Ketones Negative Urine Blood Negative Urine Nitrate Negative Urine Bilirubin Negative Urine Urobilinogen 0.2 Ur Leukocyte Esterase Negative Urine RBC 0 - 2 Urine WBC 1 - 3 Ur Epithelial Cells 3 - 4 Urine Bacteria Small Hyaline Casts 1-3 Fine Granular Casts 0 - 2 Urine Other Mucus Urine Opiates Screen Positive H Urine Methadone Screen Negative Ur Barbiturates Screen Negative Ur Phencyclidine Scrn Negative Ur Amphetamines Screen Negative U Benzodiazepines Scrn Negative U Oth Cocaine Metabols Negative U Cannabinoids Screen Positive H Alcohol, Quantitative RPR 09/26/18 09/26/18 09/28/18 08:30 08:30 07:30 WBC 7.4 D RBC 5.04 Hgb 15.4 Hct 46.5 MCV 92.3 MCH 30.6 MCHC 33.1 RDW 14.1 Plt Count 188 MPV 11.5 H Sodium Potassium Chloride Carbon Dioxide Anion Gap BUN Creatinine Est GFR ( Amer) Est GFR (Non-Af Amer) Random Glucose Fasting Glucose Calcium Total Bilirubin AST ALT Alkaline Phosphatase Total Protein Albumin Globulin Albumin/Globulin Ratio Triglycerides Cholesterol LDL Cholesterol Direct HDL Cholesterol TSH 3rd Generation 2.28 Urine Color Urine Appearance Urine pH Ur Specific Speed Urine Protein Urine Glucose (UA) Urine Ketones Urine Blood Urine Nitrate Urine Bilirubin Urine Urobilinogen Ur Leukocyte Esterase Urine RBC Urine WBC Ur Epithelial Cells Urine Bacteria Hyaline Casts Fine Granular Casts Urine Other Urine Opiates Screen Urine Methadone Screen Ur Barbiturates Screen Ur Phencyclidine Scrn Ur Amphetamines Screen U Benzodiazepines Scrn U Oth Cocaine Metabols U Cannabinoids Screen Alcohol, Quantitative RPR Nonreactive Consultations:: List each consultation separately and include: 1. Reason for request. 2. Findings. 3. Follow-up Consultations: Consulted on by Dr. Camargo on 09/27/18 Summary of Hospital Course include:: 1. Description of specific treatment plan utilized for patients during their course of treatmen. 2. Summarize the time- course for resolution of acute symptoms and/or regressed behaviors. 3. Describe issues identified and worked on during hospitalization. 4. Describe medication utilized. 5. Describe medical problems identified and treated. 6. Reassessment of suicide risk Summary of Hospital Course: DR. SILVERMAN'S 09/26/18 ADMISSION NOTE History of Present Illness and Precipitating Events: shortly pt is 48 year old male, whose past history includes anxiety, bipolar disorder, substance abuse (heroin), no previous psychiatric admissions, history of detoxes and questionable rehabs, presents to the emergency department for evaluation following heroin overdose. Patient was admitted to the psychiatric inpatient unit for evaluation and stabilization of depressive symptoms, as per emergency room report family was concerned about patient was acting strangely, pt requires observation and possible medication adjustment. Patient was seen and examined today at the morning time at the treatment team meeting, patient presented to have poor personal hygiene, has multiple tattoos on his upper extremities, patient reported that he does not feel well, patient complaining of the headache, this editorial writer gave stat dose of Motrin. Patient was able to hold and interview for short period of time. ADLs are good. Patient reported that she relapsed for feeling for the past couple of weeks after 5 months of sobriety, patient reported that she was self-medicating with heroin/snorting "I was spending only $10 a day", patient reported that she was feeling depressed, hopeless, helpless, worthless, guilty, that is why he relapsed on heroin. As a result patient become more depressed, was not able to sleep, was feeling constantly anxious, patient reported that it affects his work, relationship with his family, patient was not able to function. Patient reported prior to come to the hospital he was trying to scratch himself that is why his family was very concerned and they thought "that that i was suicidal but I was not." As per emergency room report patient was scratching his legs until it began to bleed, patient acting this way because of "severe anxiety." Patient denied visual or auditory tactile hallucinations, denies paranoid ideations, patient does not appear to be psychotic. Patient denies history of being abused. Patient denied any other drug use, smokes about 2 cigarettes a day, does not want to have nicotine patch, counseling provided. Patient reported that he was seen by psychiatrist somewhere in [place] at [facility] but patient does not remember the name of psychiatrist. Patient reported that he was on psychotropic medications but "it was not working for me". Patient reported that his psychiatrist diagnosed him with "bipolar disorder and severe anxiety". As per report patient was on Abilify, Wellbutrin, and Seroquel, patient does not want to continue those medications because "it was not helping me". Patient indicated that he was in Detox facility [facility] in [facility] about 5 months ago. Past psychiatric history: Patient denied history of being admitted to the psychiatric inpatient unit, patient denies history of suicidal attempts, was contracted for safety during the interview. Medical history: Patient reported being healthy, but during the interview patient complaining of withdrawal symptoms, PRN orders given, patient was educated to ask for help if she would have severe withdrawal symptoms. Family history: Patient denies any family history of mental illness DR. BIANCHI'S 09/30/18 DISCHARGE NOTE I interviewed patient at bedside to assess continued stability for discharge. Patient is alert and well-oriented to month, year and circumstances. Eye contact is good. Patient feels improved and denies any suicidal thoughts or thoughts to harm others. Affect is calm and appropriately reactive and more related. Patien t denies hallucinations and is not responding to internal stimuli. He denies paranoia. Thought process is clear and much improved since admission. Patient feels comfortable with discharge today and denies any new concerns. Denies acute discomfort or pain. Tolerating medications and denies any issues with them. Delusions and paranoia were not elicited on day of discharge. - Final Diagnosis (DSM 5) Condition upon Discharge: STABLE DSM 5: As per history of bipolar disorder Opioid use disorder Rule out substance-induced mood disorder Rule out generalized anxiety disorder Rule out substance-induced anxiety disorder Disposition: HOME/ ROUTINE Follow-up Treatment Plan: * PLEASE REFER TO SW NOTE FOR FULL DISPOSITION INFORMATION * THE FOLLOWING RX WAS PROVIDED TO PATIENT (15 DAYS + 1 RF) PROZAC 20 MG PO QAM RISPERDAL 1 MG PO AM + HS ATIVAN 1 MG PO AM + HS Laboratory Results - last 24 hr 09/28/18 07:30 WBC 7.4 D RBC 5.04 Hgb 15.4 Hct 46.5 MCV 92.3 MCH 30.6 MCHC 33.1 RDW 14.1 Plt Count 188 MPV 11.5 H - Smoking Cessation Smoking Cessation Medication prescribed: No - Antipsychotic Medications Pt discharged on 2 or more routine antipsychotic medications: No
[2018-09-30] MEDS: Budesonide 0.5 mg/2 ml Inhal Susp UD IH SCH (09:20)
[2018-09-30] MEDS: Arformoterol 15 mcg/2 ml Inh Sol IH SCH (09:20)
[2018-09-30] MEDS: Multivitamin With Minerals Tab PO SCH (09:23)
== END 2018-09-30 13:10 | disposition home or self-care (01) | DRG 753 ==
LOC: ED 19:51 → ERH 09-26 02:21 → PSYC 09-26 06:09
PROVIDERS: ADMIT Psychiatry & Neurology Psychiatry; ATTEND Psychiatry & Neurology Psychiatry
DX: F31.9 Bipolar disorder, unspecified (principal); T40.1X1A Poisoning by heroin, accidental (unintentional), initial encounter; F11.20 Opioid dependence, uncomplicated; J44.9 Chronic obstructive pulmonary disease, unspecified; F41.9 Anxiety disorder, unspecified; F17.210 Nicotine dependence, cigarettes, uncomplicated; Z80.3 Family history of malignant neoplasm of breast

== ENCOUNTER 2018-11-01 17:33 | Emergency (ER) | payer OTHER ==
[2018-11-01 17:57] VITALS: BMI 27.8
[2018-11-01 18:00] VITALS: RESP 18
[2018-11-01] MEDS ORDERED: Naproxen 550 mg Tab PO STA (20:40)
[2018-11-01] MEDS ORDERED: TDAP Vaccine 0.5 mL Syr IM ONE (20:40)
[2018-11-01] MEDS ORDERED: Lidocaine 1% Inj (20ml) IJ STA (20:40)
[2018-11-01 20:47] VITALS: BP 142/75; PULSE 68; TEMP 98; O2SAT 100
[2018-11-01] MEDS ORDERED: Povidone Iodine Topical 10% Sol TOP ONE (21:36)
--- NOTE | 2018-11-01 21:53 | ED PDOC ---
Arrival/HPI - General Chief Complaint: Abnormal Skin Integrity Time Seen by Provider: 11/01/18 19:49 Historian: Patient - History of Present Illness Narrative History of Present Illness (Text): 11/01/18 20:30 48 year old male, with no significant past medical history, presents to the emergency department complaining of sustaining a laceration to the right 5th digit after getting his finger caught in a pallet at work. Patient denies any other injuries. Patient denies any decrease ROM, numbness, or any other complaints/injuries. PMD: None Symptom Onset: Sudden Symptom Course: Unchanged Activities at Onset: Light Context: Work Past Medical History - Provider Review Nursing Documentation Reviewed: Yes - Infectious Disease Hx of Infectious Diseases: None - Cardiac Hx Cardiac Disorders: No Hx Hypertension: No - Pulmonary Hx Tuberculosis: No - Neurological HX Cerebrovascular Accident: No Hx Seizures: No - HEENT Hx HEENT Disorder: No Hx Cataracts: No Hx Deafness: No Hx Difficulty Chewing: No Hx Epistaxis: No Hx Glaucoma: No Hx Macular Degeneration: No - Renal Hx Renal Disorder: No Hx Dialysis: No Hx Kidney Stones: No Hx Neurogenic Bladder: No Hx Pyelonephritis: No Hx Renal Cancer: No Hx Renal Failure: No - Endocrine/Metabolic Hx Endocrine Disorders: No Hx Adrenal Cancer: No Hx Diabetes Insipidus: No Hx Diabetes Mellitus Type 1: No Hx Diabetes Mellitus Type 2: No Hx Hyperthyroidism: No Hx Hypothyroidism: No Hx Systemic Lupus Erythematosus: No - Hematological/Oncological Hx Cancer: No - Integumentary Hx Dermatological Disorder: No Hx Basal Cell Carcinoma: No Hx Eczema: No Hx Melanoma: No Hx Psoriasis: No Hx Squamous Cell Carcinoma: No - Musculoskeletal/Rheumatological Hx Musculoskeletal Disorders: No Hx Arthritis: No Hx Back Pain: No Hx Degenerative Joint Disease: No Hx Falls: No Hx Fractures: No Hx Gout: No Hx Herniated Disk: No Hx Myasthenia Gravis: No Hx Osteoarthritis: No Hx Osteomyelitis: No Hx Osteoporosis: No Hx Rhabdomyolysis: No Hx Spinal Stenosis: No Hx Unsteady Gait: No - Gastrointestinal Hx Gastrointestinal Disorders: No Hx Colostomy: No Hx Crohn's Disease: No Hx Diverticulitis: No Hx Gall Bladder Disease: No Hx Gastroesophageal Reflux: No Hx Ileostomy: No Hx Liver Failure: No Hx Pancreatitis: No HX Swallowing Problems: No - Genitourinary/Gynecological Hx Sexually Transmitted Diseases: No - Psychiatric Hx Anxiety: Yes Hx Depression: Yes Hx Substance Use: Yes - Surgical History Hx Amputation: No Hx Appendectomy: No Hx Cardiac Catheterization: No Hx Cholecystectomy: No Hx Coronary Stent: No Hx Gastric Bypass Surgery: No Hx Hysterectomy: No Hx Joint Replacement: No Hx Kidney Transplant: No Hx Liver Transplant: No Hx Mastectomy: No Hx Musculoskeletal Surgery: No Hx Open Heart Surgery: No Hx Orthopedic Surgery: No Hx Splenectomy: No Hx Valve Replacement: No - Anesthesia Hx Anesthesia: No - Suicidal Assessment Feels Threatened In Home Enviroment: No Family/Social History - Physician Review Nursing Documentation Reviewed: Yes Family/Social History: No Known Family HX Smoking Status: Light Smoker < 10 Cigarettes Daily Hx Alcohol Use: No Hx Substance Use: Yes Substance used: heroin Allergies/Home Meds Allergies/Adverse Reactions: Allergies No Known Allergies Allergy (Verified 09/26/18 06:17) Home Medications: Home Meds Medication Instructions Recorded Confirmed Prozac 5 mg PO DAILY 09/30/18 09/30/18 Review of Systems - Physician Review All systems were reviewed & negative as marked: Yes - Review of Systems Skin: Laceration (to the right fifth digit ) Neurological: absent: Other (no numbess or decrease ROM) Physical Exam Vital Signs Reviewed: Yes Vital Signs Temp Pulse Resp BP Pulse Ox 11/01/18 20:46 98 F 68 18 142/75 100 11/01/18 18:00 98.1 F 61 18 145/80 98 Temperature: Afebrile Blood Pressure: Normal Pulse: Regular Respiratory Rate: Normal Appearance: Positive for: Well-Appearing, Non-Toxic, Comfortable Pain Distress: None Mental Status: Positive for: Alert and Oriented X 3 - Systems Exam Upper Extremity: Present: Normal ROM, NORMAL PULSES, Neurovascularly Intact, Capillary Refill < 2s, Norm 2-Pt Discrimination, Other (2cm laceration in the volar aspect of the right fifth digit and 4cm jagged laceration to the dorsal aspect of the 5th digit. ). No: Cyanosis, Edema, Tenderness, Swelling, Erythema, Temperature Abnormalties Neurological: Present: GCS=15, CN II-XII Intact, Speech Normal, Motor Func Grossly Intact, Normal Sensory Function Skin: Present: Warm, Dry, Normal Color. No: Rashes Psychiatric: Present: Alert, Oriented x 3, Normal Insight, Normal Concentration Medical Decision Making ED Course and Treatment: 11/01/18 20:30 Impression: 48 year old male presents complaining of sustaining a 2cm and 4cm laceration to the right 5th digit after getting his finger caught in a pallet at work. Plan: -- Anaprox DS, betadine, Boostrix Vaccine, Lidocaine 1% -- Hand right 5Th Digit x-ray -- Reassess and disposition Progress Notes: 11/01/18 20:[address] Beasley and ordered x-ray and tetanus. 11/01/18 21:02 Hand right 5Th Digit x-ray impression: no fracture and no dislocation. Dr. Beasley evaluated the patient and reviewed the x-ray. Laceration repair performed by Dr. Beasley. Patient tolerated the procedure well, and patient was advised to followup with Dr. Beasley. - RAD Interpretation Radiology Orders: 11/01/18 20:40 HAND RIGHT 5TH DIGIT (FINGER) [RAD] Stat Hand Bunch Maker: ED Physician - Medication Orders Current Medication Orders: Discontinued Medications Lidocaine HCl (Lidocaine 1% (20ml)) 5 ml IJ STAT STA Stop: 11/01/18 20:41 Last Admin: 11/01/18 20:58 Dose: 5 ml Comments: given by ER PA Naproxen (Anaprox Ds) 550 mg PO ONCE STA Stop: 11/01/18 20:41 Last Admin: 11/01/18 20:54 Dose: 550 mg Povidone Iodine (Betadine 10% Topical Soln) 50 ml TOP ONCE ONE Stop: 11/01/18 21:37 Tetanus/Reduced Diphtheria/Acell Pertussis (Boostrix Vaccine Inj) 0.5 ml IM .ONCE ONE Stop: 11/01/18 20:41 Last Admin: 11/01/18 20:54 Dose: 0.5 ml Immunization Registry Document 11/01/18 20:54 SRINIVAS (Rec: 11/01/18 20:54 LA [id number]) [facility]-Date provided 09/25/18 MAR Immunization Data Document 11/01/18 20:54 LA (Rec: 11/01/18 20:54 SRINIVAS [id number]) Immunization Data Vaccine Information Sheet Given Yes - PA / BUTTON INSPECTOR / Resident Statement MD/DO has reviewed & agrees with the documentation as recorded. - Scribe Statement The provider has reviewed the documentation as recorded by the Jaswant Lyn Provider Scribe Attestation: All medical record entries made by the Scribe were at my direction and personally dictated by me. I have reviewed the chart and agree that the record accurately reflects my personal performance of the history, physical exam, medical decision making, and the department course for this patient. I have also personally directed, reviewed, and agree with the discharge instructions and disposition. Disposition/Present on Arrival - Present on Arrival Any Indicators Present on Arrival: No History of DVT/PE: No History of Uncontrolled Diabetes: No Urinary Catheter: No History of Decub. Ulcer: No History Surgical Site Infection Following: None - Disposition Have Diagnosis and Disposition been Completed?: Yes Diagnosis: Finger laceration, Finger contusion Disposition: HOME/ ROUTINE Disposition Time: 21:45 Patient Plan: Discharge Condition: STABLE Discharge Instructions (ExitCare): Wound Care (DC), Laceration Repair With Stitches (DC) Additional Instructions: Thank you for letting us take care of you today. You were treated for finger laceration / contusion. The emergency medical care you received today was directed at your acute symptoms. If you were prescribed any medication, please fill it and take as directed. It may take several days for your symptoms to resolve. Return to the Emergency Department if your symptoms worsen, do not improve, or if you have any other problems. Please contact Dr. Beasley in 3-4 days for re-evaluation and follow up. Bring any paperwork you were given at discharge with you along with any medications you are taking to your follow up visit. Our treatment cannot replace ongoing medical care by a primary care provider (PCP) outside of the emergency department. Thank you for allowing the [facility] team to be part of your care today. Prescriptions: Cephalexin [Keflex] 500 mg PO Q6 #28 capsule Naproxen 500 mg PO BID PRN #20 tablet PRN Reason: Pain, Moderate (4-7) Referrals: PCP,NO [Primary Care Provider] - Follow up with primary Jensen Beasley MD [Staff Provider] - Follow up with primary Forms: TouchMail (Czech), WORK NOTE
--- NOTE | 2018-11-02 13:37 | RAD ---
Date of service: 11/01/2018 PROCEDURE: Right small finger radiographs. HISTORY: pain COMPARISON: None. TECHNIQUE: AP radiograph of the right hand, as well as spot oblique and lateral images of small finger were obtained. FINDINGS: RIGHT SMALL FINGER: There is a tiny somewhat elliptical/ teardrop shaped radiopaque density within the soft tissues along the dorsal and ulnar aspect of the 5th finger at the level of the DIP joint. This could represent overlying skin surface artifact however the possibility of some all posttraumatic mineralization not excluded. Tiny chip fracture not completely excluded. Clinical correlation with physical exam is recommended. There may also be some mild distal soft tissue swelling at the level of the mid shaft of the distal phalanx 5th finger as well. JOINTS: Normal. SOFT TISSUES: As above. OTHER FINDINGS: None. IMPRESSION: There is a tiny somewhat elliptical/ teardrop shaped radiopaque density within the soft tissues along the dorsal and ulnar aspect of the 5th finger at the level of the DIP joint. This could represent overlying skin surface artifact however the possibility of some all posttraumatic mineralization not excluded. Tiny chip fracture not completely excluded. Clinical correlation with physical exam is recommended. There may also be some mild distal soft tissue swelling at the level of the mid shaft of the distal phalanx 5th finger as well.
--- NOTE | 2018-11-11 23:47 | CON ---
DATE: 11/11/2018 EMERGENCY ROOM CONSULTATION: HISTORY OF PRESENT ILLNESS: This is a 48-year-old right hand dominant male who crushed his right small finger at work when a fell on it. He presented to the emergency room with a crush injury to his right ring finger. It was concerned for possible nerve injury, tendon injury. Consulted as a hand surgeon on-call. Patient had an x-ray which did not show any foreign bodies or fracture. I came in to evaluate the patient. PHYSICAL EXAMINATION: EXTREMITIES: Right small finger, on the ulnar aspect of the tip there was 2 cm laceration. He had some paresthesias at the distal on the ulnar site. The laceration was underlying the volar surface could be partially flex and fundus tendon laceration. There was good capillary refills to the tip of the finger. The bone was only minimally tender. He was able to extend the finger. There was no malar deformity. He had limitation to flexing at the finger secondary to pain and swelling. Other fingers were uninvolved. PLAN: I explained to the patient. I would explore the wound to make sure his nerve and tendons were fine and if they want, to immediately fixed in a timely manner in the operating room. He understood this. I will now dictate a separate operative report. Jnesen Beasley MD
--- NOTE | 2018-11-12 02:08 | OP ---
PROCEDURE DATE: 11/01/2018 SURGEON: Jensen Beasley MD PREOPERATIVE DIAGNOSES: 1. Crush injury to right small finger. 2. Right small finger 2-cm laceration. 3. Possible right small finger ulnar digital nerve laceration. 4. Possible right small finger flexor digitorum profundus tendon laceration. POSTOPERATIVE DIAGNOSES: 1. Crush injury to right small finger. 2. Right small finger 2-cm laceration. 3. Possible right small finger ulnar digital nerve laceration. 4. Possible right small finger flexor digitorum profundus tendon laceration. PROCEDURES PERFORMED: 1. Exploration of penetrating wound of right small finger. 2. Complex repair of 2-cm right small finger laceration. TYPE OF ANESTHESIA: Regional. 1. Right small finger radial digital nerve block. 2. Right small finger ulnar digital nerve block. INDICATIONS FOR THE PROCEDURE: Please refer to my separately dictated ER consultation for history and physical. DESCRIPTION OF PROCEDURE: Marcaine 0.5% was used in the right small finger ulnar and radial digital nerve block. After allowing sufficient time for the anesthetic to take effect, the wound was thoroughly irrigated with normal saline and dilute Betadine. The area was prepped and draped in the usual clean and sterile manner. I started the operation by placing a tourniquet at the base of the right small finger, which I removed at the end of the case. I made the incision larger with a scissor, I found the FDP tendon that was intact and dissected out the ulnar digital nerve that was grossly intact. I debrided the irregular skin edges, undermined it to take the tension off the wound, closed the 2-cm laceration with a 4-0 Prolene in interrupted fashion. We removed the tourniquet, placed Xeroform dry sterile dressing and Whit wrap. The patient tolerated the procedure well and was eventually discharged home from the emergency room in a stable condition. Postop wound care, limitation of physical activities, the fact there will be a scar, the prognosis of which is unknown, the need to follow up with me for reevaluation in the office and the possible chance of further surgery, possibly paresthesias persisting from the crush injury were discussed with the patient and all questions were answered. Jensen Beasley MD
== END 2018-11-01 22:05 | disposition home or self-care (01) ==
LOC: ED 17:33
DX: S61.216A Laceration without foreign body of right little finger without damage to nail, initial encounter (principal); W23.0XXA Caught, crushed, jammed, or pinched between moving objects, initial encounter; S67.196A Crushing injury of right little finger, initial encounter; Y99.0 Civilian activity done for income or pay; Z23 Encounter for immunization; F17.210 Nicotine dependence, cigarettes, uncomplicated